=== PATIENT | male | born 2005 | race Caucasian/White ===

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

== ENCOUNTER 2024-10-29 14:59 | Outpatient (REF) | payer OTHER, SELFPAY ==
[2024-10-29 15:16] LABS: Abs Immature Grans 0.01 10^3/uL (0.0-0.06); HCT 46.4 % (40.0-50.0); HGB 15.8 g/dL (13.5-17.5); Immature Grans % 0.1 %; MCH 28.7 pg (27.0-33.0); MCHC 34.1 % (32.0-36.0); MCV 84 fL (80-95); MPV 8.7 fL (8.0-11.0); Platelet Count 304 10^3/uL (130-400); RBC 5.50 10^6/uL (4.36-5.78); RDW 11.8 % (11.8-14.1); RDW-SD 35.6 fL; WBC 7.17 10^3/uL (4.4-10.8)
[2024-10-30 09:55] LABS: HIV-1/2 Ag & Ab Screen Negative (Negative)
[2024-10-30 10:04] LABS: Hepatitis C Ab w Rflx HCV PCR Negative (Negative)
[2024-10-30 15:41] LABS: ALT 25 U/L (16-63); AST 12 U/L (15-37); Albumin 4.2 g/dL (3.4-5.0); Alkaline Phosphatase 98 U/L (46-116); Anion Gap 4.6 mmol/L (3-11); BUN 19 mg/dL (7-18); Bilirubin, Total 0.4 mg/dL (0.2-1.0); CO2 32.4 mmol/L (21.0-32.0); Calcium 9.3 mg/dL (8.5-10.1); Chloride 105 mmol/L (98-107); Estimated GFR 88.79 (mL/min/1.73m2); Glucose 95 mg/dL (74-106); Potassium 4.8 mmol/L (3.5-5.1); Sodium 142 mmol/L (136-145); TSH 1.02 uIU/mL (0.36-3.74); Total Protein 7.2 g/dL (6.4-8.2)
[2024-10-30 17:45] LABS: Vitamin D 25 Total 31 ng/mL (30-100)
== END 2024-10-29 15:00 | disposition home or self-care (01) ==
LOC: NCHCN 14:59
PROVIDERS: PCP Family Medicine; Visit Provider Physician Assistant Medical
DX: R53.83 Other fatigue (principal); Z11.3 Encounter for screening for infections with a predominantly sexual mode of transmission
CPT/HCPCS: 80053; 82306; 86803; 87389; 84439; 84443; 85025